=== PATIENT | female | born 1985 | race Caucasian/White ===

== ENCOUNTER 2016-06-30 11:48 | Emergency (ER) | payer BC, OTHER ==
[~2016-06-30 11:48] MED LIST: LEVO125T4 PO; METF500T PO; NIFE10 PO; PREN0.01 PO; RANI150T PO
[2016-06-30 12:15] VITALS: BP 125/88; PULSE 111
[2016-06-30 12:31] VITALS: BP 121/84; PULSE 105
[2016-06-30 12:45] VITALS: BP 117/84; PULSE 126
--- NOTE | 2016-06-30 12:49 | PD ---
HPI Chief Complaint elevated bp in office Date Seen: Jun 30, 2016 Time Seen: 12:44 Travel History International Travel<30 Days: No Contact w/Intl Traveler<30Days: No Known Affected Area: No History of Present Illness HPI 30 yo at 37w 5days followed with increased BP in . Had normal labs approx 1 week ago and normal 24 urine protein 2-3 weeks ago. Denies symptoms. Good movement. Seen in office today and 3cm Para: 1 : 2 Last Menstrual Period: October 10, 2015 History Past Medical History Narrative Medical Hypothyroid on replacement PCOS continued on Metformin Past Surgical History Narrative Surgical Low transverse , desires Family History Family History: Negative Social History Alcohol Use: No Tobacco Use: No Substance Abuse: No Allergies-Medications (Allergen,Severity, Reaction): Coded Allergies: Erythromycin (Verified Allergy, Severe, Hives, 11/26/10) Home Meds Reported Medications Nifedipine (Procardia)10 Mg Cap10 Mg PO ONCE #1 CAP Ref 0 05/15/16 Ranitidine 150 Mg [id number] Mg PO BID #60 TAB Ref 0 05/15/16 Metformin 500 Mg [id number] Mg PO BIDPC #60 TAB Ref 0 With meals 05/15/16 Levothyroxine 125 Mcg [id number] Mcg PO DAILY #30 TAB Ref 0 05/15/16 Vitamins 1 Tab PO DAILY #30 11/26/10 Physical Exam Narrative GENERAL: Well-nourished, well-developed patient. SKIN: Warm and dry. HEAD: Normocephalic and atraumatic. EYES: No scleral icterus. No injection or drainage. ENT: No nasal drainage noted. Mucous membranes pink. Airway patent. NECK: Supple, trachea midline. No JVD. CARDIOVASCULAR: Regular rate and rhythm without murmurs, gallops, or rubs. RESPIRATORY: Breath sounds equal bilaterally. No accessory muscle use. BREASTS: Bilateral exam showed no masses , no retractions, no nipple discharge. ABDOMEN/GI: Abdomen soft, non-tender, bowel sounds present, no rebound, no guarding Gravid to [-] weeks size Fundal Height: [-] GENITOURINARY: Pelvic exam deferred, completed by private OB earlier this morning External Genitalia: intact and normal in appearance BUS glands: [-] Cervix: [-] Dilatation: [-] Effacement: [-] Station: [-] Presentation: [-] Membranes: [intact or ruptured] Uterine Contractions: [-] FHT's: Category: 1 Baseline: 145 Reactive: reactive Variability: moderate Decels: absent EXTREMITIES: No cyanosis or edema. BACK: Nontender without obvious deformity. No CVA tenderness. NEUROLOGICAL: Awake and alert. Motor and sensory grossly within normal limits. Five out of 5 muscle strength in all muscle groups. Normal speech. Data Data Labs Laboratory Tests Test 06/30/16 13:21 White Blood Count 9.0 TH/MM3 Red Blood Count 4.49 MIL/MM3 Hemoglobin 12.3 GM/DL Hematocrit 37.7 % Mean Corpuscular Volume 83.9 FL Mean Corpuscular Hemoglobin 27.4 PG Mean Corpuscular Hemoglobin 32.7 % Concent Red Cell Distribution Width 16.5 % Platelet Count 193 TH/MM3 Mean Platelet Volume 9.7 FL Urine Color LIGHT-YELLOW Urine Turbidity CLEAR Urine pH 6.0 Urine Specific [place] 1.006 Urine Protein NEG mg/dL Urine Glucose (UA) NEG mg/dL Urine Ketones NEG mg/dL Urine Occult Blood MOD Urine Nitrite NEG Urine Bilirubin NEG Urine Urobilinogen LESS THAN 2.0 MG/DL Urine Leukocyte Esterase NEG Urine RBC LESS THAN 1 /hpf Urine WBC LESS THAN 1 /hpf Urine Squamous Epithelial <1 /hpf Cells Microscopic Urinalysis Comment CULT NOT INDICATED Sodium Level 138 MEQ/L Potassium Level 3.8 MEQ/L Chloride Level 105 MEQ/L Carbon Dioxide Level 20.4 MEQ/L Anion Gap 13 MEQ/L Blood Urea Nitrogen 8 MG/DL Creatinine 0.60 MG/DL Estimat Glomerular Filtration 116 ML/MIN Rate Random Glucose 116 MG/DL Uric Acid 5.2 MG/DL Calcium Level 8.7 MG/DL Total Bilirubin 0.1 MG/DL Aspartate Amino Transf 14 U/L (AST/SGOT) Alanine Aminotransferase 16 U/L (ALT/SGPT) Alkaline Phosphatase 111 U/L Total Protein 6.5 GM/DL Albumin 2.3 GM/DL Blood Type O POSITIVE Antibody Screen NEGATIVE Laboratory Tests Test 06/30/16 13:21 White Blood Count 9.0 TH/MM3 Red Blood Count 4.49 MIL/MM3 Hemoglobin 12.3 GM/DL Hematocrit 37.7 % Mean Corpuscular Volume 83.9 FL Mean Corpuscular Hemoglobin 27.4 PG Mean Corpuscular Hemoglobin 32.7 % Concent Red Cell Distribution Width 16.5 % Platelet Count 193 TH/MM3 Mean Platelet Volume 9.7 FL Urine Color LIGHT-YELLOW Urine Turbidity CLEAR Urine pH 6.0 Urine Specific [place] 1.006 Urine Protein NEG mg/dL Urine Glucose (UA) NEG mg/dL Urine Ketones NEG mg/dL Urine Occult Blood MOD Urine Nitrite NEG Urine Bilirubin NEG Urine Urobilinogen LESS THAN 2.0 MG/DL Urine Leukocyte Esterase NEG Urine RBC LESS THAN 1 /hpf Urine WBC LESS THAN 1 /hpf Urine Squamous Epithelial <1 /hpf Cells Microscopic Urinalysis Comment CULT NOT INDICATED Sodium Level 138 MEQ/L Potassium Level 3.8 MEQ/L Chloride Level 105 MEQ/L Carbon Dioxide Level 20.4 MEQ/L Anion Gap 13 MEQ/L Blood Urea Nitrogen 8 MG/DL Creatinine 0.60 MG/DL Estimat Glomerular Filtration 116 ML/MIN Rate Random Glucose 116 MG/DL Uric Acid 5.2 MG/DL Calcium Level 8.7 MG/DL Total Bilirubin 0.1 MG/DL Aspartate Amino Transf 14 U/L (AST/SGOT) Alanine Aminotransferase 16 U/L (ALT/SGPT) Alkaline Phosphatase 111 U/L Total Protein 6.5 GM/DL Albumin 2.3 GM/DL Blood Type O POSITIVE Antibody Screen NEGATIVE [facility] labs normal ([employer] not able to populate note due to IT problem) [facility] Medical Record Reviewed: Yes Plan D/C home Follow up on Wednesday Continued limited activity Diagnosis Diagnosis: Primary Impression: 37 weeks gestation of Additional Impressions: Previous delivery affecting , antepartum Desires vaginal after trial Gestational hypertension w/o significant proteinuria in 3rd trimester Disposition: DISCHARGE HOME Tierra Ortiz MD Jun 30, 2016 12:49
[2016-06-30 13:00] VITALS: BP 121/87; PULSE 98
[2016-06-30 13:15] VITALS: BP 118/93; PULSE 103
[2016-06-30 13:30] VITALS: BP 132/80; PULSE 99
[2016-06-30 13:43] LABS: BLOOD, URINE MOD (NEG); GLUCOSE,URINE NEG (NEG); KETONE, URINE NEG (NEG); NITRITE,URINE NEG (NEG); SQUAMOUS EPITHELIAL CELL URINE <1 /hpf (0-5); URINE COLOR LIGHT-YELLOW (YELLW/STRAW)
[2016-06-30 13:44] LABS: COMMENT (UR) CULT NOT INDICATED; CULTURE IF INDICATED CULT NOT INDICATED; HEMATOCRIT 37.7 % (35.0-46.0); MEAN CELL VOLUME 83.9 FL (80.0-100.0); MEAN CORPUSCULAR HEMOGLOBIN 27.4 PG (27.0-34.0); MEAN CORPUSCULAR HGB CONC 32.7 % (32.0-36.0); PLATELET COUNT 193 TH/MM3 (150-450); RED BLOOD COUNT 4.49 MIL/MM3 (4.00-5.30); RED CELL DISTRIBUTION WIDTH 16.5 % (11.6-17.2); REVIEW FLAG FINAL
[2016-06-30 14:19] LABS: ANION GAP 13 MEQ/L (5-15); AST (GOT) 14 U/L (15-37); BICARBONATE 20.4 MEQ/L (21.0-32.0); BLOOD UREA NITROGEN 8 MG/DL (7-18); CHLORIDE 105 MEQ/L (98-107); GLOMERULAR FILTRATION RATE 116 ML/MIN (>89); POTASSIUM 3.8 MEQ/L (3.5-5.1); SODIUM (NA) 138 MEQ/L (136-145)
[2016-06-30 14:22] LABS: ALKALINE PHOSPHATASE 111 U/L (45-117); ALT (GPT) 16 U/L (10-53); TOTAL BILIRUBIN ADULT 0.1 MG/DL (0.2-1.0)
[2016-06-30 14:28] LABS: URIC ACID 5.2 MG/DL (2.6-6.0)
== END 2016-06-30 14:52 | disposition home or self-care (01) ==
LOC: HOBED 11:48
DX: O13.3 Gestational [pregnancy-induced] hypertension without significant proteinuria, third trimester (principal); O34.219 Maternal care for unspecified type scar from previous cesarean delivery; Z3A.37 37 weeks gestation of pregnancy
CPT/HCPCS: 36415; 59025; 80053; 81001; 84550; 85027; 86850; 86900; 86901

== ENCOUNTER 2016-07-06 11:36 | Inpatient (IN) | payer BC ==
[~2016-07-06] VITALS: Ht 165.1 cm; Wt 102.5 kg
[2016-07-06] VITALS (48 sets, daily range): BP systolic 108–148; BP diastolic 61–103; PULSE 70–108; RESP 18; TEMP 97.7–99.1; O2SAT 97
[2016-07-06] MEDS ORDERED: LACTATED RINGER'S 1000 ML INJ 1,000 ML IV PRN (12:47)
[2016-07-06] MEDS ORDERED: LACTATED RINGER'S 1000 ML INJ 1,000 ML IV SCH (12:47)
--- NOTE | 2016-07-06 12:52 | PD.LABORPN ---
Subjective Subjective sitting comfortably in bed no CARNEY N V Blurred Vision Objective Objective /- AROM clear Category 1 EFW 7 06/01 Pelvis unproven (last child sectioned for face presentation) Assessment/Plan Assessment and Plan term TOLAC watch pressures augement and epidural as needed Flori Álvarez MD Jul 06, 2016 12:52
[2016-07-06] MEDS ORDERED: SODIUM CHLORID 0.9% 500 ML INJ 500 ML IV PRN (13:00)
[2016-07-06] MEDS ORDERED: CITRIC ACID-SODIUM CITRATE LIQ 30 ML UDC PO SCH (13:00)
[2016-07-06] MEDS ORDERED: OXYTOCIN 30 UNITS-500ML PREMIX 500 ML IV SCH (13:00)
[2016-07-06] MEDS ORDERED: OXYTOCIN 30 UNITS-500ML PREMIX 500 ML IV ONE (13:00)
[2016-07-06] MEDS ORDERED: LIDOCAINE HCL 1% 50 ML VIAL INFIL PRN (13:00)
[2016-07-06] MEDS ORDERED: LIDOCAINE HCL 1% 50 ML VIAL I-DERMAL PRN (13:00)
[2016-07-06] MEDS ORDERED: MINERAL OIL 10 ML VIAL TOPICAL PRN (13:00)
[2016-07-06] MEDS ORDERED: ONDANSETRON HCL 4 MG/2 ML VIAL IV PRN (13:00)
[2016-07-06] MEDS ORDERED: SODIUM CHLOR 0.9% 1000 ML INJ 1,000 ML IV PRN (13:07)
[2016-07-06] MEDS ORDERED: ePHEDrine/NS 25 MG/5 ML SYR ONE (13:10)
[2016-07-06] MEDS ORDERED: fentaNYL 2MCG-BUPIV 0.125% INJ 100 ML ONE (13:10)
[2016-07-06 13:12] LABS: AUTOMATED NEUTROPHIL # 5.7 TH/MM3 (1.8-7.7); BASOPHIL % 0.4 % (0.0-2.0); EOSINOPHIL # 0.2 TH/MM3 (0-0.4); EOSINOPHIL % 2.2 % (0.0-4.0); HEMATOCRIT 36.9 % (35.0-46.0); HEMO FLAGS DIFF FINAL; LYMPHOCYTE # 1.8 TH/MM3 (1.0-4.8); MEAN CELL VOLUME 83.8 FL (80.0-100.0); MEAN CORPUSCULAR HEMOGLOBIN 27.6 PG (27.0-34.0); MONO % 5.6 % (0.0-8.0); NEUT % 69.8 % (16.0-70.0); PLATELET COUNT 190 TH/MM3 (150-450); RED CELL DISTRIBUTION WIDTH 16.3 % (11.6-17.2); WHITE BLOOD COUNT 8.2 TH/MM3 (4.0-11.0)
[2016-07-06] MEDS ORDERED: LIDOCAINE HCL 1.5% PF SOLN 20 ML AMP ONE (13:55)
[2016-07-06 14:59] LABS: BLOOD, URINE NEG (NEG); COMMENT (UR) CULT NOT INDICATED; CULTURE IF INDICATED CULT NOT INDICATED; GLUCOSE,URINE NEG (NEG); KETONE, URINE NEG (NEG); NITRITE,URINE NEG (NEG); SQUAMOUS EPITHELIAL CELL URINE 1 /hpf (0-5); URINE COLOR YELLOW (YELLW/STRAW)
[2016-07-06] MEDS ORDERED: ePHEDrine/NS 50 MG/5 ML SYR IV PRN (15:45)
[2016-07-06] MEDS ORDERED: DO NOT ADMINISTER ANTICOAGULANTS XX PRN (15:45)
[2016-07-06] MEDS ORDERED: fentaNYL 2MCG-BUPIV 0.125% INJ 100 ML EPIDURAL SCH (15:45)
[2016-07-06] MEDS ORDERED: NO SYSTEM NARCOTICS XX PRN (15:45)
[2016-07-06] MEDS ORDERED: BENZOCAINE 20% TOPICAL SPRAY 60 ML CAN TOPICAL PRN (20:30)
[2016-07-06] MEDS ORDERED: SODIUM CHLORIDE 0.9% FLUSH 5 ML FLUSH IV PRN (20:30)
[2016-07-06] MEDS ORDERED: ONDANSETRON ODT 4 MG TAB PO PRN (20:30)
[2016-07-06] MEDS ORDERED: WITCH HAZEL 50%/GLYCERIN 12.5% 40 PAD JAR TOPICAL PRN (20:30)
[2016-07-06] MEDS ORDERED: ALUMINUM/MAGNESIUM/SIMETH 30 ML CUP PO PRN (20:30)
[2016-07-06] MEDS ORDERED: ACETAMINOPHEN 325 MG TAB PO PRN (20:30)
--- NOTE | 2016-07-06 20:32 | PD.OB.DELI ---
Anesthesia: Epidural Episiotomy: Midline Vaginal Delivery: Normal, Vacuum, Presentation: Occiput anterior Nuchal Cord: None Delayed cord clamping (45 sec): Yes : Male One Minute : 8 Five Minute : 9 Weight: 6 8 Care: Suctioned, Spontaneous crying, Responded to stimulation, Blow-by O2 delivered Placenta: Spontaneous delivery, Intact, 3 vessel cord, Other (circumvalate cord insertion) Laceration: 2 deg Repair: Flori Sotelo MD Jul 06, 2016 20:32
[2016-07-06] MEDS ORDERED: DIPHTH/TETANUS/ACEL PERTUSSIS (BOOSTER) 0.5 ML VIAL/PFS IM ONE (21:00)
[2016-07-06] MEDS ORDERED: ZOLPIDEM TARTRATE 5 MG TAB PO PRN (21:00)
[2016-07-06] MEDS ORDERED: MEASLES, MUMPS, RUBELLA VACCINE 0.5 ML VIAL SQ ONE (21:00)
[2016-07-06] MEDS ORDERED: SODIUM CHLORIDE 0.9% FLUSH 5 ML FLUSH IV SCH (21:00)
[2016-07-06] MEDS: DOCUSATE SODIUM 50 MG/SENNA 8.6 MG TAB PO PRN (22:50)
[2016-07-07] MEDS: IBUPROFEN 600 MG TAB PO PRN ×4 (04:21→23:00)
[2016-07-07 08:00] VITALS: BP 134/87; PULSE 71; RESP 18; TEMP 98.1
--- NOTE | 2016-07-07 08:32 | HHI.OB ---
Subjective Post Day: 1 Objective Vitals/I&O Vital Signs Date Time Temp Pulse Resp B/P Pulse Ox O2 Delivery O2 Flow Rate FiO2 07/06/16 22:50 133/61 07/06/16 22:50 98.1 93 18 97 07/06/16 21:30 18 07/06/16 21:15 84 128/74 07/06/16 21:15 99.1 18 07/06/16 21:00 95 18 136/85 07/06/16 20:45 86 110/80 07/06/16 20:44 18 07/06/16 20:30 89 18 123/78 07/06/16 20:15 96 121/70 07/06/16 20:12 18 07/06/16 20:08 93 130/72 07/06/16 20:08 98.9 07/06/16 19:16 74 135/99 07/06/16 19:03 98.0 18 07/06/16 19:01 96 123/103 07/06/16 18:45 92 115/69 07/06/16 18:30 91 108/74 07/06/16 18:16 86 134/92 07/06/16 18:14 90 132/85 07/06/16 18:00 93 119/81 07/06/16 17:45 84 119/79 07/06/16 17:30 99 136/91 07/06/16 17:15 90 140/90 07/06/16 17:00 81 136/87 07/06/16 16:46 72 122/74 07/06/16 16:31 79 109/85 07/06/16 16:30 97.8 07/06/16 16:15 73 127/89 07/06/16 16:00 74 129/90 07/06/16 15:45 83 125/81 07/06/16 15:45 18 07/06/16 15:30 73 118/74 07/06/16 15:15 78 125/80 07/06/16 15:00 83 121/79 07/06/16 14:45 93 122/77 07/06/16 14:45 90 07/06/16 14:35 80 128/77 07/06/16 14:30 88 126/75 07/06/16 14:25 108 133/81 07/06/16 14:20 103 125/78 07/06/16 14:16 90 112/66 07/06/16 14:15 85 07/06/16 14:10 128/83 07/06/16 14:10 98 07/06/16 14:05 86 07/06/16 14:05 93 135/89 07/06/16 14:00 70 138/92 07/06/16 14:00 80 07/06/16 13:55 93 07/06/16 13:55 92 148/92 07/06/16 13:50 91 141/87 07/06/16 13:50 94 07/06/16 13:45 97.7 07/06/16 13:45 93 07/06/16 13:45 18 07/06/16 13:45 89 135/88 07/06/16 13:41 90 126/88 07/06/16 13:40 85 07/06/16 13:35 83 07/06/16 13:30 91 Objective Remarks GENERAL: Well-nourished, well-developed patient. CARDIOVASCULAR: Regular rate and rhythm without murmurs, gallops, or rubs. RESPIRATORY: Breath sounds equal bilaterally. No accessory muscle use. ABDOMEN/GI: Abdomen soft, non-tender. Fundus: Firm, non-tender at umbilicus. GENITOURINARY: Light to moderate bleeding. EXTREMITIES: No cyanosis or edema, non-tender, without signs of DVT. Medications and IVs Current Medications Medications (Trade) Dose Ordered Sig/Deborah Route Start Time Stop Time Status Last Admin Lactated Ringer's 1,000 ml @ 125 mls/hr Q8H IV 07/06/16 12:47 Lactated Ringer's 1,000 ml @ 3,000 mls/hr Q20M PRN IV 07/06/16 12:47 Sodium Chloride 500 ml @ 1,000 mls/hr ONCE PRN IV 07/06/16 13:00 07/07/16 12:59 (NS 1000 ml Inj) 1,000 ml @ 100 mls/hr Q10H PRN IV 07/06/16 13:07 (Zofran Inj) 4 mg Q6H PRN IV 07/06/16 13:00 07/06/16 18:18 (fentaNYL INJ) 50 mcg Q1H PRN IV PUSH 07/06/16 13:00 (fentaNYL INJ) 100 mcg Q1H PRN IV PUSH 07/06/16 13:00 Mineral Oil 10 ml 10 ml UNSCH PRN TOPICAL 07/06/16 13:00 (Pitocin 30 Units-NS 500 ml Premix) 500 ml @ 0 mls/hr TITRATE IV 07/06/16 13:00 07/06/16 13:26 Miscellaneous Information No systemic narcotics to be given except... UNSCH PRN XX 07/06/16 15:45 07/07/16 15:44 Miscellaneous Information DO NOT ADMINISTER ANY ANTICOAGUL... UNSCH PRN XX 07/06/16 15:45 07/07/16 15:44 (fentaNYL 2MCG-BUPIV 0.125% INJ) 100 ml @ 0 mls/hr TITRATE EPIDURAL 07/06/16 15:45 (ePHEDrine/NS 50 MG/5 ML SYR) 10 mg UNSCH PRN IV 07/06/16 15:45 07/07/16 15:44 (NS Flush) 2 ml BID IV 07/06/16 21:00 (NS Flush) 2 ml UNSCH PRN IV 07/06/16 20:30 (Tylenol) 650 mg Q4H PRN PO 07/06/16 20:30 (Motrin) 600 mg Q6H PRN PO 07/06/16 20:30 07/07/16 04:21 (Americaine 20% Top Spr) 1 spray Q4H PRN TOPICAL 07/06/16 20:30 07/06/16 22:50 (Tucks Pads) 1 applic QID PRN TOPICAL 07/06/16 20:30 07/06/16 22:50 (Aimee-Colace) 2 tab Q12H PRN PO 07/06/16 20:30 07/06/16 22:50 (Ambien) 5 mg HS PRN PO 07/06/16 21:00 (Mag-Al Plus Susp Liq) 15 ml Q8H PRN PO 07/06/16 20:30 (Zofran Odt) 4 mg Q6H PRN PO 07/06/16 20:30 Assessment/Plan Problem List: (1) , delivered (2) Status post vacuum-assisted vaginal delivery (3) Gestational hypertension w/o significant proteinuria in 3rdtrimester Assessment and Plan PPD 1 s/p , vavd cont routine care GHT- nl Natalya Bell MD Jul 07, 2016 08:32
[2016-07-07] MEDS: DOCUSATE SODIUM 50 MG/SENNA 8.6 MG TAB PO PRN (16:20)
[2016-07-08] MEDS: IBUPROFEN 600 MG TAB PO PRN (06:02)
--- NOTE | 2016-07-08 07:47 | HHI.OB ---
Subjective Post Day: 2 Remarks Doing well home\post circ Objective Vitals/I&O Vital Signs Date Time Temp Pulse Resp B/P Pulse Ox O2 Delivery O2 Flow Rate FiO2 07/07/16 08:00 98.1 71 18 134/87 Objective Remarks GENERAL: Well-nourished, well-developed patient. CARDIOVASCULAR: Regular rate and rhythm without murmurs, gallops, or rubs. RESPIRATORY: Breath sounds equal bilaterally. No accessory muscle use. ABDOMEN/GI: Abdomen soft, non-tender. Fundus: Firm, non-tender at umbilicus. GENITOURINARY: Light to moderate bleeding. EXTREMITIES: No cyanosis or edema, non-tender, without signs of DVT. Medications and IVs Current Medications Medications (Trade) Dose Ordered Sig/Deborah Route Start Time Stop Time Status Last Admin Lactated Ringer's 1,000 ml @ 125 mls/hr Q8H IV 07/06/16 12:47 Lactated Ringer's 1,000 ml @ 3,000 mls/hr Q20M PRN IV 07/06/16 12:47 (NS 1000 ml Inj) 1,000 ml @ 100 mls/hr Q10H PRN IV 07/06/16 13:07 (Zofran Inj) 4 mg Q6H PRN IV 07/06/16 13:00 07/06/16 18:18 (fentaNYL INJ) 50 mcg Q1H PRN IV PUSH 07/06/16 13:00 (fentaNYL INJ) 100 mcg Q1H PRN IV PUSH 07/06/16 13:00 Mineral Oil 10 ml 10 ml UNSCH PRN TOPICAL 07/06/16 13:00 Oxytocin 500 ml @ 0 mls/hr TITRATE IV 07/06/16 13:00 07/06/16 13:26 (fentaNYL 2MCG-BUPIV 0.125% INJ) 100 ml @ 0 mls/hr TITRATE EPIDURAL 07/06/16 15:45 (NS Flush) 2 ml BID IV 07/06/16 21:00 (NS Flush) 2 ml UNSCH PRN IV 07/06/16 20:30 (Tylenol) 650 mg Q4H PRN PO 07/06/16 20:30 (Motrin) 600 mg Q6H PRN PO 07/06/16 20:30 07/08/16 06:02 (Americaine 20% Top Spr) 1 spray Q4H PRN TOPICAL 07/06/16 20:30 07/06/16 22:50 (Tucks Pads) 1 applic QID PRN TOPICAL 07/06/16 20:30 07/06/16 22:50 (Aieme-Colace) 2 tab Q12H PRN PO 07/06/16 20:30 07/07/16 16:20 (Ambien) 5 mg HS PRN PO 07/06/16 21:00 (Mag-Al Plus Susp Liq) 15 ml Q8H PRN PO 07/06/16 20:30 (Zofran Odt) 4 mg Q6H PRN PO 07/06/16 20:30 Assessment/Plan Problem List: (1) , delivered (2) Status post vacuum-assisted vaginal delivery (3) Gestational hypertension w/o significant proteinuria in 3rdtrimester Assessment and Plan stable PPD2 mild BP elevations resolved ready to go home post circumcsion Flori Álvarez MD Jul 08, 2016 07:47
[2016-07-08] MEDS ORDERED: IBUP-232 PO (07:49)
--- NOTE | 2016-07-08 07:49 | HHI.DCPOC ---
Discharge Care Plan Report Symptoms to Your Doctor -Temperate above 100.5 degrees -Redness, of incision or excessive or foul smelling drainage -Unusual pain or calf pain -Increased vaginal bleeding -Painful or difficulty urinating -Feelings of extreme sadness or anxiety after 2 weeks Goals to Promote Your Health * To prevent worsening of your condition and complications * To maintain your health at the optimal level Directions to Meet Your Goals Take your medications as prescribed Follow your dietary instruction Follow activity as directed Ensure plenty of rest for recovery Drink fluids for hydration Keep your appointments as scheduled Take your immunizations and boosters as scheduled If your symptoms worsen call your PCP, if no PCP go to Urgent Care Center or Emergency Room Smoking is Dangerous to Your Health. Avoid second hand smoke Call the 24-hour crisis hotline for domestic abuse at Flori Álvarez MD Jul 08, 2016 07:49
[2016-07-08] MEDS: DOCUSATE SODIUM 50 MG/SENNA 8.6 MG TAB PO PRN (09:32)
== END 2016-07-08 13:08 | disposition home or self-care (01) | DRG 775 ==
LOC: H2EA 11:36 → H1EA 22:27
PROVIDERS: ADMIT Obstetrics & Gynecology; ATTEND Obstetrics & Gynecology
PROC: 10D07Z6 Extraction of Products of Conception, Vacuum, Via Natural or Artificial Opening (ICD-10-PCS; principal; 2016-07-06)
PROC: 0KQM0ZZ Repair Perineum Muscle, Open Approach (ICD-10-PCS; 2016-07-06)
PROC: 0W8NXZZ Division of Female Perineum, External Approach (ICD-10-PCS; 2016-07-06)
PROC: 00HU33Z Insertion of Infusion Device into Spinal Canal, Percutaneous Approach (ICD-10-PCS; 2016-07-06)
PROC: 3E0R3CZ (ICD-10-PCS; 2016-07-06)
PROC: 10907ZC Drainage of Amniotic Fluid, Therapeutic from Products of Conception, Via Natural or Artificial Opening (ICD-10-PCS; 2016-07-06)
DX: O34.219 Maternal care for unspecified type scar from previous cesarean delivery (principal); O13.4 Gestational [pregnancy-induced] hypertension without significant proteinuria, complicating childbirth; O70.1 Second degree perineal laceration during delivery; Z37.0 Single live birth; Z3A.38 38 weeks gestation of pregnancy
CPT/HCPCS: 59025; 81001; 85025; 90715; J2405; J2590